=== PATIENT | female | born 1985 | race Hispanic/Latino ===

== ENCOUNTER 2018-08-27 14:10 | Outpatient (CLI) | payer OTHER ==
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
== END 2018-08-27 14:11 | disposition home or self-care (01) ==
LOC: SCSRAD 14:10
PROVIDERS: ATTEND Nurse Practitioner Family
DX: V89.2XXA Person injured in unspecified motor-vehicle accident, traffic, initial encounter (principal)
CPT/HCPCS: 72050

== ENCOUNTER 2018-11-01 12:13 | Outpatient (CLI) | payer OTHER ==
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
== END 2018-11-01 12:14 | disposition home or self-care (01) ==
LOC: SCSMRI 12:13
PROVIDERS: ATTEND Family Medicine
DX: M54.16 Radiculopathy, lumbar region (principal)
CPT/HCPCS: 72148

== ENCOUNTER 2019-08-27 11:34 | Outpatient (CLI) | payer OTHER ==
--- NOTE | 2019-08-27 12:45 | RAD ---
LEFT KNEE 3 VIEWS: Date: 08/27/2019 HISTORY: Left knee pain. FINDINGS/IMPRESSION: No fracture, dislocation, or bony destruction is seen. POS: LATHA
== END 2019-08-27 11:35 | disposition home or self-care (01) ==
LOC: SCSRAD 11:34
PROVIDERS: ATTEND Family Medicine
DX: M25.562 Pain in left knee (principal)

== ENCOUNTER 2019-10-30 11:55 | Outpatient (CLI) | payer OTHER ==
--- NOTE | 2019-10-30 13:53 | MRI ---
MRI LEFT HIP: 10/30/19 PROVIDED CLINICAL HISTORY: Left sided sciatica. FINDINGS: The left hip flexor, abductor, adductor, and hamstring tendons demonstrate an intact MR appearance. The acetabular labrum and femoral-acetabular articular cartilage are suboptimally evaluated in the ab sence of joint distention but appear grossly normal. The amount of fluid within the left hip joint is physiologic. No focal concerning regional marrow or muscular signal abnormality is evident. The uterus is retroverted. The visualized intrapelvic contents appear otherwise unremarkable. The courses of regional major neurovascular structures appear unremarkable. IMPRESSION: 1. No evidence for internal derangement. 2. Retroverted uterus. POS: CHRISTIN
== END 2019-10-30 11:56 | disposition home or self-care (01) ==
LOC: BICMRI 11:55
PROVIDERS: ATTEND Psychiatry & Neurology Neurology
DX: M54.42 Lumbago with sciatica, left side (principal); N85.4 Malposition of uterus